=== PATIENT | female | born 1990 | race Caucasian/White ===

== ENCOUNTER 2021-07-31 17:49 | Emergency (ER) | payer OTHER, SELFPAY ==
[2021-07-31 18:00] VITALS: BP 119/76; PULSE 95; RESP 14; TEMP 37.2; O2SAT 99; BMI 17.3
[2021-07-31 18:25] LABS: Add Manual Diff / Slide Review NO; Basophils Absolute Auto 100 /uL (0-100); Basophils Percent Auto 0.8 % (0-2); Eosinophils Absolute Auto 100 /uL (0-450); Hematocrit 37.2 % (36-46); Hemoglobin 12.6 g/dL (12.0-16.0); Lymphocytes Absolute Auto 2300 /uL (1100-4500); Lymphocytes Percent Auto 35.4 % (25-40); Mean Corpuscular HGB Conc 33.9 % (30-36); Mean Corpuscular Hemoglobin 31.3 PG (26-34); Mean Corpuscular Volume 92.5 fL (80-100); Monocytes Absolute Auto 500 /uL (0-900); Monocytes Percent Auto 6.8 % (3-14); Neutrophils Absolute Auto 3600 /uL (1500-7000); Platelet Count 359 X10^3/uL (150-400); Red Blood Cell Count 4.03 X10^6/uL (4.0-5.2); Red Cell Distribution Width 13.5 % (11.6-14.8); White Blood Cell Count 6.6 X10^3/uL (4.5-11.0)
[2021-07-31 18:45] LABS: Alanine Aminotransferase 38 IU/L (<35); Albumin 4.6 g/dL (3.5-5.0); Albumin Globulin Ratio 1.4 (1.0-2.8); Alkaline Phosphatase 50 U/L (38-126); Aspartate Aminotransferase 40 IU/L (14-36); BUN Creatinine Ratio 13.6 (6-22); Bilirubin Total 0.3 mg/dL (0.2-1.3); Blood Urea Nitrogen 9 mg/dL (7-17); Calcium 9.1 mg/dL (8.4-10.2); Carbon Dioxide 27 mmol/L (22-32); Chloride 102 mmol/L (98-107); Estimated Glomerular Filt Rate > 60.0 mL/min (>60); Globulin 3.2 g/dL (1.7-4.1); Glucose 115 mg/dL (70-100); HEMOLYSIS < 15 (0-50); Potassium 3.3 mmol/L (3.4-5.1); Sodium 138 mmol/L (137-145); Total Protein 7.8 g/dL (6.3-8.2)
== END 2021-07-31 19:15 | disposition left against medical advice (07) ==
PROVIDERS: Emergency Provider Emergency Medicine; PCP Family Medicine; Referring Provider Obstetrics & Gynecology
DX: K92.1 Melena (principal); R10.2 Pelvic and perineal pain; K62.89 Other specified diseases of anus and rectum
CPT/HCPCS: 36415; 80053; 85025; 86850; 86900; 86901; 99283

== ENCOUNTER 2021-08-01 13:48 | Observation (INO) | payer OTHER, SELFPAY ==
[2021-08-01] VITALS (11 sets, daily range): BP systolic 116–170; BP diastolic 58–95; PULSE 45–120; RESP 16–20; TEMP 36.4–36.5; O2SAT 96–100; BMI 17.9
[2021-08-01 16:07] LABS: Bacteria Urine None Seen
[2021-08-01 16:10] LABS: Add Manual Diff / Slide Review NO; Basophils Absolute Auto 100 /uL (0-100); Eosinophils Absolute Auto 100 /uL (0-450); Eosinophils Percent Auto 1.7 % (2-4); Hematocrit 38.3 % (36-46); Hemoglobin 13.1 g/dL (12.0-16.0); Lymphocytes Absolute Auto 1900 /uL (1100-4500); Lymphocytes Percent Auto 31.3 % (25-40); Mean Corpuscular HGB Conc 34.1 % (30-36); Mean Corpuscular Hemoglobin 31.4 PG (26-34); Mean Corpuscular Volume 91.9 fL (80-100); Monocytes Absolute Auto 500 /uL (0-900); Monocytes Percent Auto 8.6 % (3-14); Neutrophils Absolute Auto 3600 /uL (1500-7000); Neutrophils Percent Auto 57.4 % (50-75); Platelet Count 356 X10^3/uL (150-400); Red Blood Cell Count 4.17 X10^6/uL (4.0-5.2); Red Cell Distribution Width 13.5 % (11.6-14.8); White Blood Cell Count 6.2 X10^3/uL (4.5-11.0)
[2021-08-01 16:22] LABS: Amorphous Sediment Urine 1+; Culture Indicated Urine Cult Not Indicated; Mucus Urine 1+ (Negative); RBC Urine 1-5/HPF (0-5/HPF); Squamous Epithelial Cell Urine 1-5 /HPF (0-5/HPF); WBC Urine 0-1/HPF (0-5/HPF)
[2021-08-01 16:23] LABS: Alanine Aminotransferase 33 IU/L (<35); Albumin 4.9 g/dL (3.5-5.0); Albumin Globulin Ratio 1.6 (1.0-2.8); Alkaline Phosphatase 48 U/L (38-126); Aspartate Aminotransferase 33 IU/L (14-36); BUN Creatinine Ratio 14.8 (6-22); Bilirubin Total 0.5 mg/dL (0.2-1.3); Blood Urea Nitrogen 9 mg/dL (7-17); Calcium 9.4 mg/dL (8.4-10.2); Carbon Dioxide 26 mmol/L (22-32); Chloride 106 mmol/L (98-107); Estimated Glomerular Filt Rate > 60.0 mL/min (>60); Glucose 96 mg/dL (70-100); HEMOLYSIS < 15 (0-50); Potassium 3.4 mmol/L (3.4-5.1); Sodium 139 mmol/L (137-145); Total Protein 7.9 g/dL (6.3-8.2)
--- NOTE | 2021-08-01 16:51 | ED_ITS ---
HPI - GI Bleed General Chief complaint: GI Bleed Stated complaint: Gastro issues Time Seen by Provider: 08/01/21 16:51 Source: patient and family Mode of arrival: Ambulatory Limitations: no limitations History of Present Illness HPI Narrative: Patient is a 31-year-old female who presents with worsening pain. She has had pelvic pain ongoing for the last 2 years. She she has started having rectal bleeding this week and started her menstrual cycle as well. She gets severe intense stabbing pains in her pelvic region. It is only controlled with multiple pillows and heating pad. She has previously taken opiates but she says it typically does not help except make her extremely nauseous. She has used marijuana in the past was also sometimes helps. She feels unknown in the medical community has taken her seriously in the past. She is terribly afraid of cancer multiple family members have had cancer. She is extremely worried about a hysterectomy as well. She previously was on years of fertility treatme nts unable to get . She has been off of fertility treatments for a long time now. Overall she is extremely upset and frustrated medical system. Related Data Home Medications Medication Instructions Recorded Confirmed oxybutynin chloride 5 mg 5 mg PO DAILY 07/22/21 08/01/21 tablet,extended release 24 hr Allergies Allergy/AdvReac Type Severity Reaction Status Date / Time No Known Drug Allergies Allergy Verified 08/01/21 14:00 Review of Systems Review of Systems Narrative: GENERAL: Denies chills, fatigue, malaise, fever, sweats, travel HEENT: Denies sinus pain, ear pain, sore throat, difficulty swallowing, neck pain RESPIRATORY: Denies dyspnea, cough, wheezing, hemoptysis, sputum. CARDIOVASCULAR: Denies chest pain, palpitations, orthopnea, edema GASTROINTESTINAL: See HPI : See HPI MUSCULOSKELETAL: Denies weakness, joint pain, or bony pain SKIN: No rash, no erythema, no pruritus NEUROLOGIC: Denies weakness, dizziness, headache, numbness, change in speech, confusion PSYCHIATRIC: No concerning psychosocial issues. 12 point review of systems is negative except for those stated above and HPI Patient History Medical History (Updated 08/01/21 @ 19:38 by Angelique Loaiza DO) Pelvic fluid collection Pelvic pain Rectal bleeding Social History household members: spouse Smoking Status: Never smoker alcohol intake: current Smoking Status: Never smoker alcohol intake frequency: holidays/special occasions only Substance Use Type: marijuana Exam Initial Vital Signs Initial Vital Signs: Vital Signs Pulse Rate 120 H 08/01/21 13:52 Respiratory Rate 16 08/01/21 13:52 Blood Pressure 170/90 H 08/01/21 13:52 Pulse Oximetry 100 08/01/21 13:52 GENERAL: Thin anxious 31-year-old female in obvious pain HEENT: Head atraumatic,EOMI, pupils reactive, face symmetric, moist mucous membranes CARDIOVASCULAR: Regular rate and rhythm without murmurs, rubs or gallops. RESPIRATORY: Breath sounds equal bilaterally, no wheezes rales or rhonchi. ABDOMEN: Soft, mild lower abdominal tenderness after dilaudid and heating pad has complained EXTREMITIES: Normal range of motion, no clubbing or edema. Neurovascularly intact NEUROLOGICAL: Alert and oriented x4.Normal gait and speech. SKIN: Warm, dry, no laceration, no petechiae, no rashes or lesions. Course Orders Ordered: ED Orders 08/01/21 14:01 EKG-12 Lead Stat 08/01/21 15:50 Complete Blood Count AUTO DIFF Stat Comprehensive Metabolic Panel Stat 08/01/21 15:55 Urine Microscopic Stat 08/01/21 16:00 COVID19 - ADMIT (H[employer] swab/PCR) Stat 08/01/21 17:31 CT abdomen pelvis w con Stat Discontinued Medications Hydromorphone HCl (Hydromorphone 1 Mg Inj) 1 mg IV NOW ONE Stop: 08/01/21 16:53 Last Admin: 08/01/21 17:06 Dose: 1 mg Documented by: CORTNEY Ondansetron HCl (Ondansetron 4 Mg/2 Ml Inj) 4 mg IV NOW ONE Stop: 08/01/21 16:53 Last Admin: 08/01/21 17:05 Dose: 4 mg Documented by: CORTNEY Vital Signs Vital signs: Vital Signs - 8 hr 08/01/21 13:52 08/01/21 15:47 08/01/21 16:00 Pulse Rate 120 H 65 68 Respiratory Rate 16 Blood Pressure 170/90 H 124/66 Pulse Oximetry 100 100 99 08/01/21 16:30 08/01/21 17:00 08/01/21 17:30 Pulse Rate 103 H 72 59 L Respiratory Rate Blood Pressure 141/95 H 116/58 L 125/82 Pulse Oximetry 98 98 98 08/01/21 18:00 08/01/21 18:30 08/01/21 18:38 Pulse Rate 61 54 L Respiratory Rate Blood Pressure 125/68 Pulse Oximetry 96 98 MDM - GI Bleed Lab Data Result diagrams: 08/01/21 15:50 08/01/21 15:50 Labs: Lab Results 08/01/21 08/01/21 08/01/21 Range/Units 15:50 15:50 15:55 WBC 6.2 (4.5-11.0) X10^3/uL RBC 4.17 (4.0-5.2) X10^6/uL Hgb 13.1 (12.0-16.0) g/dL Hct 38.3 (36-46) % MCV 91.9 (80-100) fL MCH 31.4 (26-34) PG MCHC 34.1 (30-36) % RDW 13.5 (11.6-14.8) % Plt Count 356 (150-400) X10^3/uL Neut % (Auto) 57.4 (50-75) % Lymph % (Auto) 31.3 (25-40) % [place] % (Auto) 8.6 (3-14) % Eos % (Auto) 1.7 L (2-4) % Baso % (Auto) 1.0 (0-2) % Neut # (Auto) 3600 (6236-4353) /uL Lymph # (Auto) 1900 (3631-7939) /uL [place] # (Auto) 500 (0-900) /uL Eos # (Auto) 100 (0-450) /uL Baso # (Auto) 100 (0-100) /uL Sodium 139 (137-145) mmol/L Potassium 3.4 (3.4-5.1) mmol/L Chloride 106 (98-107) mmol/L Carbon Dioxide 26 (22-32) mmol/L BUN 9 (7-17) mg/dL Creatinine 0.61 (0.52-1.04) mg/dL Estimated GFR > 60.0 (>60) mL/min BUN/Creatinine Ratio 14.8 (6-22) Glucose 96 (70-100) mg/dL Calcium 9.4 (8.4-10.2) mg/dL Total Bilirubin 0.5 (0.2-1.3) mg/dL AST 33 (14-36) IU/L ALT 33 (<35) IU/L Alkaline Phosphatase 48 (38-126) U/L Total Protein 7.9 (6.3-8.2) g/dL Albumin 4.9 (3.5-5.0) g/dL Globulin 3.0 (1.7-4.1) g/dL Albumin/Globulin Ratio 1.6 (1.0-2.8) Urine RBC 1-5/hpf (0-5/HPF) Urine WBC 0-1/hpf (0-5/HPF) Ur Squamous Epith Cells 1-5 /hpf (0-5/HPF) Amorphous Sediment 1+ Urine Bacteria None seen (None) Urine Mucus 1+ H (Negative) Ur Culture Indicated? Cult not indicated SARS-CoV-2 (PCR) (Negative) 08/01/21 Range/Units 16:00 WBC (4.5-11.0) X10^3/uL RBC (4.0-5.2) X10^6/uL Hgb (12.0-16.0) g/dL Hct (36-46) % MCV (80-100) fL MCH (26-34) PG MCHC (30-36) % RDW (11.6-14.8) % Plt Count (150-400) X10^3/uL Neut % (Auto) (50-75) % Lymph % (Auto) (25-40) % [place] % (Auto) (3-14) % Eos % (Auto) (2-4) % Baso % (Auto) (0-2) % Neut # (Auto) (2506-9831) /uL Lymph # (Auto) (1195-0015) /uL [place] # (Auto) (0-900) /uL Eos # (Auto) (0-450) /uL Baso # (Auto) (0-100) /uL Sodium (137-145) mmol/L Potassium (3.4-5.1) mmol/L Chloride (98-107) mmol/L Carbon Dioxide (22-32) mmol/L BUN (7-17) mg/dL Creatinine (0.52-1.04) mg/dL Estimated GFR (>60) mL/min BUN/Creatinine Ratio (6-22) Glucose (70-100) mg/dL Calcium (8.4-10.2) mg/dL Total Bilirubin (0.2-1.3) mg/dL AST (14-36) IU/L ALT (<35) IU/L Alkaline Phosphatase (38-126) U/L Total Protein (6.3-8.2) g/dL Albumin (3.5-5.0) g/dL Globulin (1.7-4.1) g/dL Albumin/Globulin Ratio (1.0-2.8) Urine RBC (0-5/HPF) Urine WBC (0-5/HPF) Ur Squamous Epith Cells (0-5/HPF) Amorphous Sediment Urine Bacteria (None) Urine Mucus (Negative) Ur Culture Indicated? SARS-CoV-2 (PCR) Negative (Negative) Point of Care Testing Test Results Negative Urine Dip Bedside Urine Glucose Negative Bedside Urine Bilirubin - Negative Bedside Urine Ketone - Negative Urine Specific [place] 1.010 Bedside Urine Occult Blood - Negative Bedside Urine pH 8 Bedside Urine Protein - Negative Bedside Urine Urobilinogen - Negative Bedside Urine Nitrite - Negative Bedside Urine Leukocytes - Negative Esterase Imaging Data CT scan - abdomen/pelvis: Radiologist's Impression: PROCEDURE:? CT ABDOMEN PELVIS W CON ? INDICATIONS:? severe pain ? TECHNIQUE:? After the administration of oral and IV contrast, axial sections were acquired from the lung bases to the pubic symphysis.? Coronal and sagittal reformats were performed.? For radiation dose reduction, the following was used:? automated exposure control, adjustment of mA and/or kV according to patient size. ? COMPARISON:? None. ? FINDINGS:? Image quality:? Excellent.? ? Lung bases:? Unremarkable.? ? Heart:? No significant findings. ? ? ABDOMEN: Liver:? Unremarkable.? ? Gallbladder:? Unremarkable.? ? Biliary ducts:? Unremarkable.? ? Pancreas:? Unremarkable.? ? Spleen:? Unremarkable.? ? Adrenal Glands:? Unremarkable.? ? Kidneys and Ureters:? Unremarkable.? ? ? Stomach and Bowel:? Stomach, small bowel loops, and colon are unremarkable.? Peritoneum:? No abnormal intraperitoneal fluid.? No free air.? ? Ventral Wall: ? No hernia.? Abdominal Nodes:? No retroperitoneal or mesenteric adenopathy by size criteria.? Vessels:? Aorta and inferior vena cava are normal in size.? ? PELVIS: Pelvic Organs:? Unremarkable.? ? Bladder:? Unremarkable.? ? Pelvic Nodes: No enlarged lymph nodes.? 8 mm coarse calcification in the right lower quadrant may reflect prior granulomatous disease. Miscellaneous: No inguinal hernias are seen.? ? Small amount of free fluid in the pelvis. ? ? Bones:? Incidental pars defects are noted in the L5 vertebral body without spondylolisthesis.? Remainder of the osseous structures are unremarkable. ? ? IMPRESSION:? ? Small amount of free fluid in the pelvis.? Consider ultrasound correlation. ? Incidental L5 spondylolysis without evidence of spondylolisthesis ? ? Approved by: Puneet Robertson M.D. on 08/01/2021 at 17:25? ECG Data Interpretation: Normal sinus rhythm rate 51 [place] interval 116 QRS [address] changes or T-wave inversions MDM Narrative Medical decision making narrative: Patient is calmed and is agreeable to dilaudid and Zofran which seems to help her tremendously. Blood work is overall stable and reassuring. Although patient is having obvious spasms that appear quite painful. CT does show trace amount of fluid and possible granulomatous disease in her right lower quadrant. The concern with new episodic rectal bleeding ulcerative colitis versus an endometriosis. I have spoken personally to Dr. Aranda who is in the emergency department to see and evaluate patient and self he saw her earlier today Dr. Anderson has surgery updated patient's symptoms test results he has been made aware of patient via Dr. Aranda and recommends admission to hospitalist Dr. Conrad updated on everyone's recommendations patient's symptoms and agrees to observation Discharge Plan Departure Patient Disposition: Admitted as Observation Clinical Impression: Pelvic pain, Rectal bleeding Admit Date/Time: 08/01/21 18:42 Admit Provider: Royce Conrad
[2021-08-01] MEDS: ONDANSETRON 4 MG/2 ML INJ IV (17:05)
[2021-08-01] MEDS: HYDROMORPHONE 1 MG INJ IV (17:06)
[2021-08-01 17:15] LABS: COVID19 - ADMIT (NP swab/PCR) Negative (Negative)
--- NOTE | 2021-08-01 17:31 | DI.CT.S_ITS ---
PROCEDURE: CT ABDOMEN PELVIS W CON INDICATIONS: severe pain TECHNIQUE: After the administration of oral and IV contrast, axial sections were acquired from the lung bases to the pubic symphysis. Coronal and sagittal reformats were performed. For radiation dose reduction, the following was used: automated exposure control, adjustment of mA and/or kV according to patient size. COMPARISON: None. FINDINGS: Image quality: Excellent. Lung bases: Unremarkable. Heart: No significant findings. ABDOMEN: Liver: Unremarkable. Gallbladder: Unremarkable. Biliary ducts: Unremarkable. Pancreas: Unremarkable. Spleen: Unremarkable. Adrenal Glands: Unremarkable. Kidneys and Ureters: Unremarkable. Stomach and Bowel: Stomach, small bowel loops, and colon are unremarkable. Peritoneum: No abnormal intraperitoneal fluid. No free air. Ventral Wall: No hernia. Abdominal Nodes: No retroperitoneal or mesenteric adenopathy by size criteria. Vessels: Aorta and inferior vena cava are normal in size. PELVIS: Pelvic Organs: Unremarkable. Bladder: Unremarkable. Pelvic Nodes: No enlarged lymph nodes. 8 mm coarse calcification in the right lower quadrant may reflect prior granulomatous disease. Miscellaneous: No inguinal hernias are seen. Small amount of free fluid in the pelvis. Bones: Incidental pars defects are noted in the L5 vertebral body without spondylolisthesis. Remainder of the osseous structures are unremarkable. IMPRESSION: Small amount of free fluid in the pelvis. Consider ultrasound correlation. Incidental L5 spondylolysis without evidence of spondylolisthesis Approved by: Puneet Robertson M.D. on 08/01/2021 at 17:25
--- NOTE | 2021-08-01 18:55 | PC.NURSE ---
Jai Lucas: [phone]
--- NOTE | 2021-08-01 21:25 | P.HP_ITS ---
History of Present Illness History of Present Illness Chief complaint: Gastro issues Narrative: The patient is a woman who has been having pain in her pelvis. She is to undergo a laparoscopy be on Wednesday of this week however she developed diarrhea with blood mixed in with it. She is uncertain how much bleeding she has done and it sounds like from the description is mostly stool with some blood mixed. It is not black. She has not had this before. She has had diarrhea alternating with constipation for some time. The family drinks city water. No one else has the symptoms. She comes from a large family and does not have any recollection of anyone having Crohn's disease or ulcerative colitis. There are people with intestinal issues however. She says she usually tends toward constipation rather than diarrhea. No in in the family has had cancer of the colon. She had a grandfather of pancreatic cancer and 1 of lung cancer. She had an aunt who had breast cancer. She has 1 sibling was otherwise healthy. Patient History Medical History Pelvic fluid collection Pelvic pain Rectal bleeding Family & Social History Family History (Updated 08/01/21 @ 21:29 by Adal Anderson MD) Other Cancer Social History: household members spouse Prior Living Arrangements House Safety & Behavioral: Feels Safe in Current Yes Environment Suicidal Ideation Description None Suicide Plan Description No Plan Tobacco & Substance use: Smoking Status Never smoker alcohol intake current alcohol intake frequency holiday/special occasion Substance Use Type marijuana Meds Home Medications and Allergies Home Medications Medication Instructions Recorded Confirmed Type oxybutynin chloride 5 mg 5 mg PO DAILY 07/22/21 08/01/21 History tablet,extended release 24 hr Allergies Allergy/AdvReac Type Severity Reaction Status Date / Time No Known Drug Allergies Allergy Verified 08/01/21 14:00 Review of Systems Review of Systems Narrative: No heart or breathing problems. No murmurs. No hematemesis. No seizures or blackouts. Exam Vital Signs (past 8 hours): - 08/01/21 13:52 08/01/21 15:47 08/01/21 16:00 Temperature Pulse Rate 120 H 65 68 Respiratory Rate 16 Blood Pressure 170/90 H 124/66 Pulse Oximetry 100 100 99 08/01/21 16:30 08/01/21 17:00 08/01/21 17:30 Temperature Pulse Rate 103 H 72 59 L Respiratory Rate Blood Pressure 141/95 H 116/58 L 125/82 Pulse Oximetry 98 98 98 08/01/21 18:00 08/01/21 18:30 08/01/21 18:38 Temperature Pulse Rate 61 54 L Respiratory Rate Blood Pressure 125/68 Pulse Oximetry 96 98 08/01/21 19:00 Temperature 97.7 F Pulse Rate 45 L Respiratory Rate 20 Blood Pressure 124/77 Pulse Oximetry 98 Oxygen Delivery Method Room Air Oxygen Flow Rate 0 Narrative Exam Narrative: Very thin andCooperative in no Apparent distress at this time. eyes are nonicteric. Lungs are clear to auscultation. No rales or rhonchi. Heart regular rate and rhythm no murmur gallop. Abdomen is scaphoid s oft nontender without mass. alert and oriented. Seems very anxious. Objective Labs Result Diagrams: 08/01/21 15:50 08/01/21 15:50 Labs: Laboratory Results - last 24 hr 08/01/21 08/01/21 08/01/21 15:50 15:50 15:55 WBC 6.2 RBC 4.17 Hgb 13.1 Hct 38.3 MCV 91.9 MCH 31.4 MCHC 34.1 RDW 13.5 Plt Count 356 Neut % (Auto) 57.4 Lymph % (Auto) 31.3 [place] % (Auto) 8.6 Eos % (Auto) 1.7 L Baso % (Auto) 1.0 Neut # (Auto) 3600 Lymph # (Auto) 1900 [place] # (Auto) 500 Eos # (Auto) 100 Baso # (Auto) 100 Sodium 139 Potassium 3.4 Chloride 106 Carbon Dioxide 26 BUN 9 Creatinine 0.61 Estimated GFR > 60.0 BUN/Creatinine Ratio 14.8 Glucose 96 Calcium 9.4 Total Bilirubin 0.5 AST 33 ALT 33 Alkaline Phosphatase 48 Total Protein 7.9 Albumin 4.9 Globulin 3.0 Albumin/Globulin Ratio 1.6 Urine RBC 1-5/hpf Urine WBC 0-1/hpf Ur Squamous Epith Cells 1-5 /hpf Amorphous Sediment 1+ Urine Bacteria None seen Urine Mucus 1+ H Ur Culture Indicated? Cult not indicated SARS-CoV-2 (PCR) 08/01/21 16:00 WBC RBC Hgb Hct MCV MCH MCHC RDW Plt Count Neut % (Auto) Lymph % (Auto) [place] % (Auto) Eos % (Auto) Baso % (Auto) Neut # (Auto) Lymph # (Auto) [place] # (Auto) Eos # (Auto) Baso # (Auto) Sodium Potassium Chloride Carbon Dioxide BUN Creatinine Estimated GFR BUN/Creatinine Ratio Glucose Calcium Total Bilirubin AST ALT Alkaline Phosphatase Total Protein Albumin Globulin Albumin/Globulin Ratio Urine RBC Urine WBC Ur Squamous Epith Cells Amorphous Sediment Urine Bacteria Urine Mucus Ur Culture Indicated? SARS-CoV-2 (PCR) Negative Assessment & Plan Assessment and plan (1) Rectal bleeding: Status: Acute (2) Pelvic pain: Status: Acute Assessment & Plan narrative: Difficult to tell with the bleeding is from. Given all of her pelvic history an upcoming surgery and felt it important to proceed with an evaluation of her colon promptly. She would like to begin prep tonight and do it tomorrow morning and have a colonoscopy tomorrow mid day. I think there is some likelihood that she has some form of inflammatory bowel disease. This could be however something that simpler or more complex her pelvic pain may be related to endometriosis and this could be from an endom etrial implant. Her CT scan shows fluid within her endometrium. The intestines read as normal but I think the most recent scan may show some thickening of the sigmoid colon. I have discussed the procedure and the rationale with the patient including risks of bleeding, perforation which would necessitate a major operation, failure to find remove all lesions and the potential to tattoo. They appeared to understand and wished to proceed. Because of her history of being on a prescription monitoring program I will ask the anesthesiologist to be with us so we can avoid the use of narcotics. Time Spent With Patient Critical Care time: I spent a total of [] minutes of critical care time on this patient's care today; this time is exclusive of procedural time.
[2021-08-01] MEDS: PEG3350/SOD SULF,BICARB,CL/KCL 4,000 ML SOLUTION 2000 ML PO (21:51)
[2021-08-01] MEDS: DEXTROSE 5%-LACTATED RINGERS 1,000 ML 84 ML IV (21:52)
[2021-08-01] MEDS: PROCHLORPERAZINE 10 MG/2 ML VIAL IV (22:29)
--- NOTE | 2021-08-01 23:03 | P.HP_ITS ---
History of Present Illness History of Present Illness Date Patient Seen: 08/01/21 Time Patient Seen: 22:00 Chief complaint: Gastro issues Narrative: Nicolle Mesa is 31-year-old patient of Dr. Aranda feed grinder who was in her usual state of health and scheduled to have laparoscopic surgery for pelvic pain on August 07 presented to the emergency department with rectal bleeding. She states she has been nauseous with cramping. She has a history of interstitial cystitis and has had bladder expansion done at [facility]. She does deny vomiting, she has had poor p.o. intake due to feeling nauseous all the time for a number of weeks, denies fevers sweats or chills, denies UTIs, she has alternating bouts of constipation and diarrhea currently is having diarrhea with blood. Ultrasound ordered in the ED indicated small amount of free fluid in the pelvis. Patient is afebrile, blood pressure 124/77 heart rate 45, respiratory rate 20, oxygen saturation 90% on room air she weighs 45.2 kg with a BMI of 17.9. CBC is unremarkable, BMP and liver enzymes are also unremarkable, UA is negative for UTI, COVID-19 PCR is negative, stool O and P and Clostridium difficile are pending. Patient History Medical History (Updated 08/01/21 @ 23:27 by RUPINDER Williamson) Interstitial cystitis Pelvic fluid collection Pelvic pain Family & Social History Family History (Updated 08/01/21 @ 23:28 by RUPINDER Williamson) Mother Alive and well Father Cancer of oral cavity Tobacco user Other Cancer Social History: household members spouse Prior Living Arrangements House Safety & Behavioral: Feels Safe in Current Yes Environment Suicidal Ideation Description None Suicide Plan Description No Plan Tobacco & Substance use: Smoking Status Never smoker alcohol intake current alcohol intake frequency holiday/special occasion Substance Use Type marijuana Comment: Takes oral THC for relief of interstitial cystitis Meds Home Medications and Allergies Home Medications Medication Instructions Recorded Confirmed Type oxybutynin chloride 5 mg 5 mg PO DAILY 07/22/21 08/01/21 History tablet,extended release 24 hr Allergies Allergy/AdvReac Type Severity Reaction Status Date / Time No Known Drug Allergies Allergy Verified 08/01/21 14:00 Review of Systems Review of Systems ROS: Yes All systems reviewed with the patient and are negative except as otherwise documented Exam Vital Signs (past 8 hours): - 08/01/21 15:47 08/01/21 16:00 08/01/21 16:30 Temperature Pulse Rate 65 68 103 H Respiratory Rate Blood Pressure 124/66 141/95 H Pulse Oximetry 100 99 98 08/01/21 17:00 08/01/21 17:30 08/01/21 18:00 Temperature Pulse Rate 72 59 L 61 Respiratory Rate Blood Pressure 116/58 L 125/82 Pulse Oximetry 98 98 96 08/01/21 18:30 08/01/21 18:38 08/01/21 19:00 Temperature 97.7 F Pulse Rate 54 L 45 L Respiratory Rate 20 Blood Pressure 125/68 124/77 Pulse Oximetry 98 98 Oxygen Delivery Method Room Air Oxygen Flow Rate 0 Narrative Exam Narrative: Gen: Alert, oriented, thin 31 y.o. female, NAD HEENT: normocephalic, atraumatic, conjunctiva clear, sclera non-icteric, oral m ucosa pink and moist Neck: supple, full ROM, no JVD, trachea is midline Resp: Lungs CTA, non-labored breathing CV: RRR, no murmur or rubs Abd: soft, non-tender, normoactive BTs Skin: no lesions or rashes, dry and intact Neuro: Alert and oriented X 4 w/no focal deficits. Speech clear and coherent. Extremities: moves all 4 extremities, is ambulatory, negative Bisi?s sign Psyche: anxious but cooperative Objective Labs Result Diagrams: 08/01/21 15:50 08/01/21 15:50 Labs: Laboratory Results - last 24 hr 08/01/21 08/01/21 08/01/21 15:50 15:50 15:55 WBC 6.2 RBC 4.17 Hgb 13.1 Hct 38.3 MCV 91.9 MCH 31.4 MCHC 34.1 RDW 13.5 Plt Count 356 Neut % (Auto) 57.4 Lymph % (Auto) 31.3 [place] % (Auto) 8.6 Eos % (Auto) 1.7 L Baso % (Auto) 1.0 Neut # (Auto) 3600 Lymph # (Auto) 1900 [place] # (Auto) 500 Eos # (Auto) 100 Baso # (Auto) 100 Sodium 139 Potassium 3.4 Chloride 106 Carbon Dioxide 26 BUN 9 Creatinine 0.61 Estimated GFR > 60.0 BUN/Creatinine Ratio 14.8 Glucose 96 Calcium 9.4 Total Bilirubin 0.5 AST 33 ALT 33 Alkaline Phosphatase 48 Total Protein 7.9 Albumin 4.9 Globulin 3.0 Albumin/Globulin Ratio 1.6 Urine RBC 1-5/hpf Urine WBC 0-1/hpf Ur Squamous Epith Cells 1-5 /hpf Amorphous Sediment 1+ Urine Bacteria None seen Urine Mucus 1+ H Ur Culture Indicated? Cult not indicated SARS-CoV-2 (PCR) 08/01/21 16:00 WBC RBC Hgb Hct MCV MCH MCHC RDW Plt Count Neut % (Auto) Lymph % (Auto) [place] % (Auto) Eos % (Auto) Baso % (Auto) Neut # (Auto) Lymph # (Auto) [place] # (Auto) Eos # (Auto) Baso # (Auto) Sodium Potassium Chloride Carbon Dioxide BUN Creatinine Estimated GFR BUN/Creatinine Ratio Glucose Calcium Total Bilirubin AST ALT Alkaline Phosphatase Total Protein Albumin Globulin Albumin/Globulin Ratio Urine RBC Urine WBC Ur Squamous Epith Cells Amorphous Sediment Urine Bacteria Urine Mucus Ur Culture Indicated? SARS-CoV-2 (PCR) Negative Assessment & Plan Assessment & Plan narrative: Nicolle Mesa is observed overnight to do a bowel prep and will undergo colonoscopy in an attempt to identify a source of rectal bleeding. 1. Suspected lower GI bleed, acute, present on admission * Dr. Anderson to scope her in the morning and will do a bowel prep tonight * NPO except meds * CBC in the morning to monitor for blood loss * C. Difficile and stool O and P pending 2. Chronic and ongoing pelvic pain, present on admission * Pain control with IV Dilaudid 0.5 mg q 3 hours prn pain 3. Interstitial cystitis, chronic * Continue home dose of oxybutynin 5 mg p.o. as needed VTE Prophylaxis: Wells risk score 0 bilateral AMANDO hose, patient is ad adán in the room Patient is placed into observation as her stay is not expected to exceed 2 midnights. FEN: IV fluids: NS at 100 ml/hour, diet: NPO except meds, labs: CBC, C/BMP, liver enzymes, Mag, Consultants Dr. Anderson, General Surgery, care and involvement in the patient?s care is appreciated. Dispo: probable discharge to home Code status: Full Code as discussed with the patient who identifies , Jai Mesa as her surrogate and POA. I confirmed that the patient's advanced care plan is present, code status is determined, or surrogate decision maker is listed on the patient's medical recor d. [X] I have utilized all available immediate resources to obtain, update, or review of the patient's current medications [X] The patient has current or prior documentation of the left ventricular ejection fraction (LEVF) less than 40% or moderate or severely depressed left ventricular systolic function. [] Yes [X] No COVID-19 COVID-19 status: Negative Result date/Date tested (Pos, Neg/Pending): 08/01/21 Quality VTE Deep Vein Thrombosis/Pulmonary Embolism Present on Admission: No MIPS - DC The patient has current or prior documentation of left ventricular ejection fraction (LVEF) less than 40%, or moderate or severely depressed left ventricular systolic function.: No
[2021-08-01] MEDS: HYDROMORPHONE 0.5 MG INJ IV (23:55)
[2021-08-02] VITALS (10 sets, daily range): BP systolic 113–139; BP diastolic 60–83; PULSE 46–68; RESP 12–21; TEMP 35.5–36.4; O2SAT 95–100; BMI 17.6
--- NOTE | 2021-08-02 | PATH_ITS ---
[facility] Accession Number: [id number] . 01 Material submitted: . rectum - RANDOM RECTAL BIOPSIES . 01 Clinical history: . RANDOM BIOPSIES ON NORMAL LOOKING MUCOSA GASTRO ISSUES . 02 Diagnosis: Rectum, Biopsies: Colonic mucosa with no diagnostic abnormality. Negative for active, chronic, and microscopic colitis. Negative for dysplasia and malignancy. . V 08/06/2021 1042 Local . 02 Electronically signed: . Tom Gomez MD, PhD, Pathologist NPI- [id number] . 01 Gross description: . RANDOM RECTAL BIOPSIES: Received in formalin are 4 fragment(s) of armas, soft tissue measuring 0.4 x 0.3 x 0.2 cm to 0.3 x 0.3 x 0.2 cm submitted entirely in 1 cassette(s) /VANDANA 08/05/2021 0211 Local . 02 Pathologist provided ICD-10: R19.4, R10.9 . 02 CPT . 590121 Specimen Comment: A duplicate report has been generated due to demographic updates. Performed at: [facility] [address], [place], [place] [id number] MD Harrison Kimball MD Phone: [phone] Performed at: [facility] [address] [place], [place] [id number] MD Nuria Vasquez MD Phone: [phone]
[2021-08-02 00:18] LABS: Campylobacter Not Detected (Not Detect); Clostridium difficile toxin AB Not Detected (Not Detect); Enteroaggregative E.coli Not Detected (Not Detect); Enteropathogenic E.coli Not Detected (Not Detect); Enterotoxigenic E.coli It/st Not Detected (Not Detect); Plesiomonsa shigelloides Not Detected (Not Detect); Salmonella Not Detected (Not Detect); Shiga-like toxin-prod E.coli Not Detected (Not Detect); Vibrio Not Detected (Not Detect); Vibrio cholerae Not Detected (Not Detect); Yersinia enterocolitica Not Detected (Not Detect)
[2021-08-02 00:19] LABS: Adenovirus F 40/41 Not Detected (Not Detect); Astrovirus Not Detected (Not Detect); Cryptosporidium Not Detected (Not Detect); Cyclospora cayetanensis Not Detected (Not Detect); Entamoeba histolytica Not Detected (Not Detect); Giardia lamblia Not Detected (Not Detect); Norovirus GI/GII Not Detected (Not Detect); Rotavirus A Not Detected (Not Detect); Sapovirus Not Detected (Not Detect); Shigella/Enteroinvasive E.coli Not Detected (Not Detect)
--- NOTE | 2021-08-02 02:08 | PC.NURSE ---
Pt is A and O x4, VSS. Spouse Jos in room. Pt stool has been clear since 0000. PIV migrating and redressing and enforcement cause anxiety and tears. Pt rated px 7/10, given 0.5 mg dilaudid IVP and able to sleep. Independent in room.
[2021-08-02] MEDS: PEG3350/SOD SULF,BICARB,CL/KCL 4,000 ML SOLUTION 2000 ML PO (05:44)
[2021-08-02 06:39] LABS: Add Manual Diff / Slide Review NO; Basophils Absolute Auto 0 /uL (0-100); Basophils Percent Auto 0.5 % (0-2); Eosinophils Absolute Auto 0 /uL (0-450); Eosinophils Percent Auto 0.2 % (2-4); Hematocrit 37.5 % (36-46); Hemoglobin 12.8 g/dL (12.0-16.0); Lymphocytes Absolute Auto 1300 /uL (1100-4500); Lymphocytes Percent Auto 16.3 % (25-40); Mean Corpuscular Hemoglobin 31.6 PG (26-34); Mean Corpuscular Volume 92.8 fL (80-100); Monocytes Absolute Auto 500 /uL (0-900); Monocytes Percent Auto 5.9 % (3-14); Neutrophils Absolute Auto 6100 /uL (1500-7000); Neutrophils Percent Auto 77.1 % (50-75); Platelet Count 329 X10^3/uL (150-400); Red Blood Cell Count 4.04 X10^6/uL (4.0-5.2); Red Cell Distribution Width 13.6 % (11.6-14.8)
[2021-08-02 06:56] LABS: BUN Creatinine Ratio 5.6 (6-22); Blood Urea Nitrogen 3 mg/dL (7-17); Calcium 9.3 mg/dL (8.4-10.2); Carbon Dioxide 23 mmol/L (22-32); Chloride 105 mmol/L (98-107); Estimated Glomerular Filt Rate > 60.0 mL/min (>60); Glucose 135 mg/dL (70-100); HEMOLYSIS < 15 (0-50); Potassium 4.2 mmol/L (3.4-5.1); Sodium 139 mmol/L (137-145)
[2021-08-02] MEDS: DEXTROSE 5%-LACTATED RINGERS 1,000 ML 84 ML IV (07:47)
--- NOTE | 2021-08-02 09:15 | CM.DANOTE ---
DCP: Case received, EMR reviewed and met with patient. , Jai, was also at bedside. Introduced self and role. Was able to obtain information from patient regarding her baseline activity status prior to hospitalization. DCP assessment completed with information currently available. Patient is a 31 year old female who admitted yesterday morning to the care of the hospitalist team. PCP: Dr. Johnson. Payer: confirmed: [employer]. Patient came to the hospital via private vehicle secondary to having pelvic pain/rectal bleeding. She is scheduled for a colonoscopy this morning at approximately 10:00am. Met with patient in her room. She is currently NPO, sitting up in bed, in room. Confirmed that they both reside in [facility]. She is independent at her baseline. P: DCP to continue to follow. Patient should be able to go home when medically stable, possibly today depending up her results. Jessica Waggnoer RN/Timber Inspector
--- NOTE | 2021-08-02 10:03 | PM.PREOP ---
Pre-operative Note COVID-19 COVID-19 status: Negative Result date/Date tested (Pos, Neg/Pending): 08/01/21 Interval Note History & Physical reviewed/Exam performed by Physician: Yes Changes to H&P: No
--- NOTE | 2021-08-02 10:36 | PM.OP.ENDO ---
Operative Date/Time/Diagnoses Date of procedure: 08/02/21 Time of procedure: 10:36 Pre-op diagnosis: RECTAL BLEEDING by history Post-op diagnosis: same (Normal exam including the terminal ileum) Procedure & Clinicians Study performed: Colonoscopy Same procedure as scheduled: Yes Indications: New onset rectal bleeding Surgeon: Adal Anderson Procedure Notes SCOAP/Timeout: Performed Procedure in detail: The patient is placed in left lateral decubitus position. Because of her narcotic medication at issues and her severe anxiety in anesthesiologist was available to provide IV sedation without the use of narcotics and provide adequate sedation in order to actually do the procedure. The patient was placed in the left lateral decubitus position and underwent IV sedation directed by the surgeon consisting of fentanyl and Versed. Digital exam was unremarkable. The scope was inserted and advanced through the rectum into the sigmoid, descending, transverse, and ascending colon. The patient had to be reduced position once in order to complete the exam. The cecum was reached identified by the ileocecal valve and the appendiceal opening. The ileocecal valve was successfully cannulated. The terminal ileum was normal in appearance. The scope was gradually brought out. NoPolyps were found. No areas of inflammation or abnormal appearing mucosa were identified anywhere including the rectum. I did choose to do some random biopsies in the rectum in case there is a subclinical issue here. The scope ultimately was retroflexed in the rectum. The appearance was normal. I saw no evidence of hemorrhoids and coming slowly through the anus saw no evidence of a bleeding site. The scope was removed and the patient tolerated the procedure well. Scope withdrawal time: 4 minutes Sedation minutes: 0 (Deep sedation was provided by the anesthesiologist.) Specimen(s): other (Random rectal biopsies. Normal appearing mucosa.) Complications: none Impression: No findings to suggest a significant colonic pathology. Recommend proceeding with the surgery scheduled for Wednesday. Post-procedure Recommendations: Other recommendation (Begin screening at normal age.) Plan for aftercare: Discharge and follow-up with her skiver welt end.
--- NOTE | 2021-08-02 10:58 | PM.DS.1 ---
History of Present Illness History of Present Illness Chief complaint: Gastro issues Narrative: The patient is a woman who has been having pain in her pelvis. She is to undergo a laparoscopy be on Wednesday of this week however she developed diarrhea with blood mixed in with it. She is uncertain how much bleeding she has done and it sounds like from the description is mostly stool with some blood mixed. It is not black. She has not had this before. She has had diarrhea alternating with constipation for some time. The family drinks city water. No one else has the symptoms. She comes from a large family and does not have any recollection of anyone having Crohn's disease or ulcerative colitis. There are people with intestinal issues however. She says she usually tends toward constipation rather than diarrhea. No in in the family has had cancer of the colon. She had a grandfather of pancreatic cancer and 1 of lung cancer. She had an aunt who had breast cancer. She has 1 sibling was otherwise healthy. Discharge Providers Provider Date of admission: 08/01/21 18:42 Discharge Date: 08/02/21 Primary care physician: Nuria Johnson MD Consults: 08/01/21 19:10 Consult to General Surgery Routine Comment: Consulting Provider: Adal Anderson Reason for consultation: GI bleeding Has provider been notified: Yes Discharge provider: Adal Anderson MD Summary Hospital Course Discharge Diagnosis: History of rectal bleeding. Chronic pelvic pain. Status at Discharge Cognitive/behavioral status at discharge: oriented Functional status at discharge: independent ambulation Overall status at discharge: patient is back to baseline Exam Vital Signs (past 8 hours): - 08/02/21 03:10 08/02/21 08:05 08/02/21 09:55 Temperature 97.1 F L 96 F L 97.6 F Pulse Rate 54 L 50 L 52 L Respiratory Rate 15 14 15 Blood Pressure 114/67 113/63 116/72 Pulse Oximetry 95 98 98 08/02/21 09:56 08/02/21 10:31 08/02/21 10:36 Temperature 97.2 F L Pulse Rate 52 L 46 L 68 Respiratory Rate 14 21 15 Blood Pressure 126/60 123/71 139/83 Pulse Oximetry 98 100 100 08/02/21 10:41 08/02/21 10:46 Temperature Pulse Rate 65 57 L Respiratory Rate 12 13 Blood Pressure 129/83 118/78 Pulse Oximetry 100 100 Oxygen Delivery Method Room Air Oxygen Flow Rate 0 Narrative Exam Narrative: Patient is alert and oriented. Lungs clear. Abdomen is scaphoid. Objective Labs Result Diagrams: 08/02/21 06:13 08/02/21 06:13 Labs: Laboratory Results - last 24 hr 08/01/21 08/01/21 08/01/21 15:50 15:50 15:55 WBC 6.2 RBC 4.17 Hgb 13.1 Hct 38.3 MCV 91.9 MCH 31.4 MCHC 34.1 RDW 13.5 Plt Count 356 Neut % (Auto) 57.4 Lymph % (Auto) 31.3 [place] % (Auto) 8.6 Eos % (Auto) 1.7 L Baso % (Auto) 1.0 Neut # (Auto) 3600 Lymph # (Auto) 1900 [place] # (Auto) 500 Eos # (Auto) 100 Baso # (Auto) 100 Sodium 139 Potassium 3.4 Chloride 106 Carbon Dioxide 26 BUN 9 Creatinine 0.61 Estimated GFR > 60.0 BUN/Creatinine Ratio 14.8 Glucose 96 Calcium 9.4 Total Bilirubin 0.5 AST 33 ALT 33 Alkaline Phosphatase 48 Total Protein 7.9 Albumin 4.9 Globulin 3.0 Albumin/Globulin Ratio 1.6 Urine RBC 1-5/hpf Urine WBC 0-1/hpf Ur Squamous Epith Cells 1-5 /hpf Amorphous Sediment 1+ Urine Bacteria None seen Urine Mucus 1+ H Ur Culture Indicated? Cult not indicated Stl C. cayetanensis PCR Stool Rotavirus (PCR) Stool Adenovirus (PCR) Stool Astrovirus (PCR) Stool Cryptosporidium PCR Stl E.coli Shiga Tox PCR e clear. AbdoSt Sh/Enteroin Ecoli PCR Stoomen isl E coli O157 PCR Stl Enterotoxigenic E PCR Stool EPEC (PCR) Stl E. histolytica PCR Stool Giardia Lamblia PCR Stool Sapovirus (PCR) Stl P. shigelloides PCR St Y.enterocolitica PCR Stool Vibrio (PCR) Stl Vibrio cholerae PCR Stl Enteroaggr Ecoli PCR Stl Norovirus GI/GII PCR Campylobacter (PCR) C. difficile Tox (PCR) SARS-CoV-2 (PCR) Salmonella (PCR) 08/01/21 08/01/21 08/02/21 16:00 23:00 06:13 WBC 8.0 RBC 4.04 Hgb 12.8 Hct 37.5 MCV 92.8 MCH 31.6 MCHC 34.0 RDW 13.6 Plt Count 329 Neut % (Auto) 77.1 H Lymph % (Auto) 16.3 L [place] % (Auto) 5.9 Eos % (Auto) 0.2 L Baso % (Auto) 0.5 Neut # (Auto) 6100 Lymph # (Auto) 1300 [place] # (Auto) 500 Eos # (Auto) 0 Baso # (Auto) 0 Sodium Potassium Chloride Carbon Dioxide BUN Creatinine Estimated GFR BUN/Creatinine Ratio Glucose Calcium Total Bilirubin AST ALT Alkaline Phosphatase Total Protein Albumin Globulin Albumin/Globulin Ratio Urine RBC Urine WBC Ur Squamous Epith Cells Amorphous Sediment Urine Bacteria Urine Mucus Ur Culture Indicated? Stl C. cayetanensis PCR Not detected Stool Rotavirus (PCR) Not detected Stool Adenovirus (PCR) Not detected Stool Astrovirus (PCR) Not detected Stool Cryptosporidium PCR Not detected Stl E.coli Shiga Tox PCR Not detected St Sh/Enteroin Ecoli PCR Not detected Stool E coli O157 PCR Not Reportable Stl Enterotoxigenic E PCR Not detected Stool EPEC (PCR) Not detected Stl E. histolytica PCR Not detected Stool Giardia Lamblia PCR Not detected Stool Sapovirus (PCR) Not detected Stl P. shigelloides PCR Not detected St Y.enterocolitica PCR Not detected Stool Vibrio (PCR) Not detected Stl Vibrio cholerae PCR Not detected Stl Enteroaggr Ecoli PCR Not detected Stl Norovirus GI/GII PCR Not detected Campylobacter (PCR) Not detected C. difficile Tox (PCR) Not detected SARS-CoV-2 (PCR) Negative Salmonella (PCR) Not detected 08/02/21 06:13 WBC RBC Hgb Hct MCV MCH MCHC RDW Plt Count Neut % (Auto) Lymph % (Auto) [place] % (Auto) Eos % (Auto) Baso % (Auto) Neut # (Auto) Lymph # (Auto) [place] # (Auto) Eos # (Auto) Baso # (Auto) Sodium 139 Potassium 4.2 Chloride 105 Carbon Dioxide 23 BUN 3 L Creatinine 0.54 Estimated GFR > 60.0 BUN/Creatinine Ratio 5.6 L Glucose 135 H Calcium 9.3 Total Bilirubin AST ALT Alkaline Phosphatase Total Protein Albumin Globulin Albumin/Globulin Ratio Urine RBC Urine WBC Ur Squamous Epith Cells Amorphous Sediment Urine Bacteria Urine Mucus Ur Culture Indicated? Stl C. cayetanensis PCR Stool Rotavirus (PCR) Stool Adenovirus (PCR) Stool Astrovirus (PCR) Stool Cryptosporidium PCR Stl E.coli Shiga Tox PCR St Sh/Enteroin Ecoli PCR Stool E coli O157 PCR Stl Enterotoxigenic E PCR Stool EPEC (PCR) Stl E. histolytica PCR Stool Giardia Lamblia PCR Stool Sapovirus (PCR) Stl P. shigelloides PCR St Y.enterocolitica PCR Stool Vibrio (PCR) Stl Vibrio cholerae PCR Stl Enteroaggr Ecoli PCR Stl Norovirus GI/GII PCR Campylobacter (PCR) C. difficile Tox (PCR) SARS-CoV-2 (PCR) Salmonella (PCR) [facility] Medical History (Updated 08/01/21 @ 23:27 by RUPINDER Williamson) Interstitial cystitis Pelvic fluid collection Pelvic pain Family History (Updated 08/01/21 @ 23:28 by RUPINDER Williamson) Mother Alive and well Father Cancer of oral cavity Tobacco user Other Cancer Social History household members: spouse Smoking Status: Never smoker alcohol intake: current Discharge Assessment & Plan Assessment and Plan Assessment: Chronic pelvic pain. Evaluation on Wednesday with a laparoscopy by Dr. Aranda. This is already scheduled. No obvious source of your bleeding from colonoscopy. You may have some bleeding now from the procedure. This would not be unusual. You should go to the ER for passage of large amounts of blood per rectum. Discharge Plan Discharge Plan Patient Disposition: Home Provider Discharge Comment: Your colonoscopy was entirely normal. The studies on her stool or also normal. I did do some random biopsies in your rectum but I did not see anything there. I do not know why you had the bleeding but it seems to not be anything serious, and it seems to have resolved. Please keep your appointments for your operation on Wednesday. I have made Dr. Aranda aware of the results. Discharge orders & Medications Prescriptions: Continued oxybutynin chloride 5 mg tablet extended release 24hr 5 mg PO DAILY RF: 0 Follow up/Referrals: Nuria Johnson MD [Primary Care Provider] - Adal Aranda MD [Physician] - (Keep your appointment for your Wednesday operation and follow the instructions you already have.) Diet/Activity/Treatments Diet: Diet as Tolerated Activity: Do not operate machinery or drive today. Do not sign important documents today. You may resume normal activity tomorrow. Discharge Data Primary Care Provider: Nuria Johnson Attending Provider: Royce Conrad VTE Deep Vein Thrombosis/Pulmonary Embolism Present on Admission: No
[2021-08-02] MEDS: LACTATED RINGERS 1,000 ML 42 ML IV (11:04)
--- NOTE | 2021-08-02 11:06 | SUR.PHASEI ---
Patient came from Acute Care unit for a colonoscopy on the weekend. When procedure done, and patient woke up, sent back to acute care to most likely be sent home. No discharge instructions given due to going back to the floor
--- NOTE | 2021-08-02 11:35 | PC.NURSE ---
Patient back from PACU and ready for d/c to home. VSS, tolerating clears, no n/v, no pain, and ambulating in room. Dr. Barrios at bedside. IV removed. Went over d/c instructions with patient and spouse. Instructed not to drive today, continue home meds, when to return to the ER, follow up appts, and s/s of stroke. Patient with no question. Taken down to private vehicle with RN and spouse.
== END 2021-08-02 11:39 | disposition home or self-care (01) ==
LOC: ED 16:51 → AC 18:43
PROVIDERS: Nurse Practitioner Family; Specialist; Admitting Provider Internal Medicine; Emergency Provider Emergency Medicine; PCP Family Medicine; Referring Provider Emergency Medicine; Visit Provider Internal Medicine
PROC: 0DJD8ZZ Inspection of Lower Intestinal Tract, Via Natural or Artificial Opening Endoscopic (ICD-10-PCS; CPT 45378; principal; 2021-08-02 10:00)
DX: K62.5 Hemorrhage of anus and rectum (principal); R10.2 Pelvic and perineal pain; Z20.822 Contact with and (suspected) exposure to COVID-19
CPT/HCPCS: 45380; 36415; 36592; 74177; 80048; 80053; 81003; 81015; 81025; 85025; 87507; 87635; 93005; 96361; 96374; 96375; 96376; 99284; 99285; C9803; G0378; J0780; J1170; J2405; J7121

== ENCOUNTER → 2021-08-05 11:09 | Outpatient (CLI) | payer OTHER, SELFPAY ==
[2021-08-02 01:11] VITALS: BMI 17.6
[2021-08-05 12:03] LABS: COVID19 -Nasal RAPID Negative (Negative)
== END ==
PROVIDERS: PCP Family Medicine; Visit Provider Obstetrics & Gynecology
DX: Z01.812 Encounter for preprocedural laboratory examination (principal); Z20.822 Contact with and (suspected) exposure to COVID-19
CPT/HCPCS: 87635

== ENCOUNTER 2021-08-05 11:32 | Day surgery (SDC) | payer OTHER, SELFPAY ==
[2021-08-01 08:16] VITALS: BMI 17.9
[2021-08-02 01:11] VITALS: BMI 17.6
[2021-08-05] VITALS (7 sets, daily range): BP systolic 125–143; BP diastolic 70–91; PULSE 50–91; RESP 10–20; TEMP 36.9–37.7; O2SAT 99–100; BMI 17.9
--- NOTE | 2021-08-05 | PATH_ITS ---
[facility] Accession Number: [id number] . 01 Material submitted: . PART A: peritoneum - RIGHT PERITONEAL BIOPSY CUL DE SAC PART B: peritoneum - LEFT PERITONEAL BIOPSY CUL DE SAC . 01 Clinical history: . SDC . 01 Diagnosis: A. Right Peritoneal Cul-De-Sac, Biopsy: Endometriosis. . B. Left Peritoneal [place]-De-Sac, Biopsy: Mild chronic inflammation with hemosiderin deposition and focal possible endometrial stromal cells, consistent with endometriosis. [facility] 08/07/2021 1732 Local . 01 Comment: This case has been reviewed by Dr. Allison Flores. . 01 Electronically signed: . Dante Maria MD, Dermatopathologist NPI- [id number] . 01 Gross description: . A. Received in formalin, labeled right peritoneal biopsy consists of a 1.5 x 1.0 x 0.4 cm armas-pink fragment of soft tissue, which is inked blue, bisected, and entirely submitted in cassette A1. B. Received in formalin, labeled left peritoneal biopsy consists of a 0.6 x 0.5 x 0.3 cm armas fragment of soft tissue, which is inked blue, bisected and entirely submitted in cassette B1. ([id number]) /MRV 08/06/2021 1022 Local . 01 Pathologist provided ICD-10: R10.2 . 01 CPT . 150107, 430857 [facility]formed at: 01 [facility] [address] [place] [id number] MD Harrison Kimball MD Phone: [phone]
[2021-08-05] MEDS: LACTATED RINGERS 1,000 ML 100 ML IV ×2 (12:27→15:14)
--- NOTE | 2021-08-05 12:56 | P.HPOB_ITS ---
History of Present Illness History of Present Illness Reason for admission: pelvic pain Narrative: Nicolle is a 31 yo G0 LMP 07/15/2021 who was referred for evaluation of longstanding pelvic pain by her primary care provider, Dr. Nuria Johnson.? The patient's pain began over 2 years ago and originally was considered bladder in origin.? She has been seen, evaluated, and treated extensively by the urology group in [place] with hydrodistention and 6 instillations of DMSO.? Relief from any of those procedures has been transient and the pain has not only returned but over the last 2 years has gradually worsened to the point where it is now.? She still? takes THC by mouth daily prabha use without it she finds it difficult if not impossible to empty her bladder. The pain is difficult for her just to describe but is constant and involves the entire pelvis.? It is markedly worsened by defecation which has become very difficult and does radiate down her right leg into the right calf.? She has no motor or sensory deficit however in either lower extremity.? 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 Extensive evaluation by Dr. Johnson has been negative for any laboratory abnormalities but a CT on 07/01/2021 shows significant amount of fluid in the pelvis and it's described as intermediate density. In addition, there is significant amount of fluid in the endometrial cavity which was thought to be associated with menses but she was actually not on her menses of the time. Subsequent abdominal/pelvic CT 08/01/2021 showed only a small amount of fluid in the pevis and no adnexal abnormalities. Of note is that the patient states her pain originally started as left sided pain and she has repeatedly been told that she has a small cyst in the left ovary when ultrasounds are performed. Patient has been offered narcotics for pain relief in the past but they do little and make her constipated which simply makes her pain worse.? Aside from pain with defecation, she has not had any consistent GI s ymptomatology.? She states however that starting last week, she started having episodic diarrhea after eating food and the diarrhea was notable for bright red blood each time she had a bowel movement.? She was referred to the emergency department at [facility] and underwent colonoscopy on 08/02/2021 which was negative for any abnormality whatever. Rectal biopsies are pending but are not expected to be revealing. After extensive discussions regarding options for further evaluation, the patient is scheduled to undergo diagnostic laparoscopy at [facility] on 07/05/2021.? She presents today for her scheduled surgery. [facility] Medical History Interstitial cystitis Pelvic fluid collection Pelvic pain Family History Mother Alive and well Father Cancer of oral cavity Tobacco user Other Cancer Social History household members: spouse Smoking Status: Never smoker alcohol intake: current Meds Home Medications and Allergies Home Medications Medication Instructions Recorded Confirmed Type oxybutynin chloride 5 mg 5 mg PO DAILY 07/22/21 08/05/21 History tablet,extended release 24 hr Allergies Allergy/AdvReac Type Severity Reaction Status Date / Time No Known Drug Allergies Allergy Verified 08/02/21 09:54 Review of Systems Review of Systems Narrative: Problem-specific ROS positives are included in HPI. Exam Vital Signs (past 8 hours): - 08/05/21 12:28 Temperature 99.9 F H Pulse Rate 91 H Respiratory Rate 20 Blood Pressure 143/91 H Pulse Oximetry 100 Oxygen Delivery Method Room Air Const General: cooperative, in distress (due to pain) and anxious Nutritional Appearance: thin Orientation: alert and oriented x3 HENMT Head: normocephalic and atraumatic Eyes General: appearance normal, both eyes and all related structures Neck Neck: normal visual inspection Resp Effort & Inspection: normal respiratory effort and able to speak in complete sentences Auscultation: clear to auscultation bilaterally Cardio Rate: regular rate Rhythm: regular rhythm Heart Sounds: S1 normal, S2 normal and no murmurs GI Palpation: guarding and tender (Exquisite tenderness diffusely but greatest in both LQ's) General: other (Deferred for EUA due to pain and patient apprehension) Neuro General: other (antalgic, shuffling gait) Psych Appearance: other (Fragile, unwell, in pain) Mental Status: mental status grossly normal Speech and Movement: speech and movement normal Mood: congruent mood Affect: normal affect Attitude: cooperative Thought Process: normal Thought Content: normal Judgment: judgment good Assessment & Plan Assessment and plan (1) Pelvic pain: Status: Acute (2) Pelvic fluid collection: Status: Acute Plan: Patient and her were counseled regarding alternatives, options for further evaluation, risks, benefits, and potential complications associated with diagnostic laparoscopy.? Due to the uncertain nature of the cause of her pelvic pain, we discussed the possibility of possibly removing the left tube and ovary which seems to have been the initial location of her pain as well as the possibility of hysterectomy with or without BSO.? Although such extensive surgery is unlikely, their position is that they would like to move forward with whatever surgery is necessary to mitigate the patient's pain symptoms.? With full understanding of the above, her written consent was presviously executed, signed, and witnessed. Time Spent With Patient Critical Care time: I spent a total of [] minutes of critical care time on this patient's care today; this time is exclusive of procedural time.
--- NOTE | 2021-08-05 14:05 | SUR.OPER ---
Supine on padded OR bed, head on pillow, arms padded and tucked at sides, legs uncrossed, safety belt at thigh, tape over blanket over lower legs .
[2021-08-05] MEDS: BUPIVACAINE 0.5% (PF) VIAL 30 ML INJ (14:13)
[2021-08-05] MEDS: ROPIVACAINE 0.2% PF 2 MG/ML 10ML AMP 10 ML INJ (14:42)
[2021-08-05] MEDS: HYDROCODONE/ACET 5/325 TABLET 1 TAB PO (15:35)
--- NOTE | 2021-08-05 15:37 | PM.GYNOP.1 ---
Operative Date/Time/Diagnoses Date of procedure: 08/05/21 Time of procedure: 13:45 Pre-op diagnosis: Pelvic pain Post-op diagnosis: other (Pelvic pain, pelvic endometriosis) Procedure & Clinicians Procedure: Procedures Operation Date: 08/05/21 13:30 Actual Procedure Side Surgeon p Laparoscopy, Diagnostic, HEALTH SPECIALIST PERITONEAL BIOPSY,FULGERATION ENDOMETRIAL IMPLANTS Adal Aranda MD Indications: Nicolle is a 31 yo G0 LMP 07/15/2021 who was referred for evaluation of longstanding pelvic pain by her primary care provider, Dr. Nuria Johnson.? The patient's pain began over 2 years ago and originally was considered bladder in origin.? She has been seen, evaluated, and treated extensively by the urology group in [place] with hydrodistention and 6 instillations of DMSO.? Relief from any of those procedures has been transient and the pain has not only returned but over the last 2 years has gradually worsened to the point where it is now.? She still? takes THC by mouth daily because without it she finds it difficult if not impossible to empty her bladder. The pain is difficult for her just to describe but is constant and involves the entire pelvis.? It is markedly worsened by defecation which has become very difficult and does radiate down her right leg into the right calf.? She has no motor or sensory deficit however in either lower extremity.? 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 Extensive evaluation by Dr. Johnson has been negative for any laboratory abnormalities but a CT on 07/01/2021 shows significant amount of fluid in the pelvis and it's described as intermediate density. In addition, there is significant amount of fluid in the endometrial cavity which was thought to be associated with menses but she was actually not on her menses of the time. Subsequent abdominal/pelvic CT 08/01/2021 showed only a small amount of fluid in the pevis and no adnexal abnormalities. Of note is that the patient states her pain originally started as left sided pain and she has repeatedly been told that she has a small cyst in the left ovary when ultrasounds are performed. Patient has been offered narcotics for pain relief in the past but they do little and make her constipated which simply makes her pain worse.? Aside from pain with defecation, she has not had any consistent GI symptomatology.? She states however that starting last week, she started having episodic diarrhea after eating food and the diarrhea was notable for bright red blood each time she had a bowel movement.? She was referred to the emergency department at [facility] and underwent colonoscopy on 08/02/2021 which was negative for any abnormality whatever. Rectal biopsies are pending but are not expected to be revealing. After extensive discussions regarding options for further evaluation, the patient is scheduled to undergo diagnostic laparoscopy at [facility] on 07/05/2021.? She presents today for her scheduled surgery. Surgeon: Adal Aranda Derrick Engineer: Pau Salmon Anesthesia Type: General Operative Notes Findings: Upon entry into the abdominal cavity, the pelvis and upper abdomen were visualized laparoscopically. The anterior cul-de-sac is free of adhesions or endometrial implants but there is a small amount of bloody fluid therein. Similarly, the posterior cul-de-sac contains a moderate amount of blood-tinged fluid. 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 The uterus is normal size and both fallopian tubes appear normal in their entirety. In the posterior cul-de-sac however there are Masters windows containing endometriosis medial to the uterosacral ligaments on both left and the right side. These were excised in their entirety during the course of the procedure. There was also a superficial Masters window with endometriotic implants lateral to the uterus sacral ligaments insertion into the cervix on the left side. Monopolar current was used to destroy the superficial implants. Inspection of the sigmoid colon demonstrated an area which appeared ulcer-like but which probably represents a serosal rent from colonoscopy performed 3 days ago. Intraoperative consult with general surgery confirmed that impression. The appendix was normal in all respects. The liver edge of both the left and right lobe were unremarkable and the gallbladder could not be visualized. No other abnormalities were noted. Closure Type: primary Specimen(s): other ( Peritoneal biopsies (excision, endometriosis)) Estimated blood loss (mL): 5 Blood products transfused: none Procedure in detail: With the patient under satisfactory general endotracheal anesthesia in the dorsal lithotomy position, the vagina, perineum, and abdomen were prepped and draped in the usual fashion for laparoscopy. A pre-surgical safety time-out was then taken per [facility] Main OR protocol. No uterine manipulator was placed. The umbilicus was then infiltrated with 0.5% Marcaine and a 1 cm vertical umbilical incision was made. A Veress needle was then used to insufflate the abdominal cavity with carbon dioxide and after sufficient insufflation, a 5 mm trocar and sleeve were then placed. The 5 mm scope was placed through the port and the abdomen visualized briefly. A 2nd and 3rd 5 mm port were then placed on the right and left mid quadrants after infiltration with 0.5% Marcaine. Using a 3 puncture technique the pelvis and abdomen were thoroughly inspected and photographic documentation obtained. The Masters window on the left was then grasped at its base with a Nanda grasper and elevated so as to be able to excise the base of the Masters window with Endo Rich. This was accomplished easily and the specimen obtained for pathologic evaluation. There was minimal bleeding and what spotting there was coming from the excision site was controlled easily with monopolar cautery. The superficial Masters window lateral to the uterosacral on the left was then coagulated in its entirety again with careful avoidance of all significant underlying structures. Inspection of the right side of the cul-de-sac revealed another Masters window on the right and it too was grasped at the base with Nanda forceps and the Masters window an endometrial implant excised, and submitted for pathologic evaluation. Hemostasis was excellent at both excision sites. superficial areas of endometriosis in the left posterior cul-de-sac were then coagulated judiciously with monopolar current. At the end of the case, there was no bleeding evident and there were no remaining endometriotic implants visible. 20 cc of ropivacaine were then placed into the posterior cul-de-sac for additional postop pain relief and after assuring that there were no other abnormalities, the pneumoperitoneum was vented and the ports removed. 4-0 Monocryl suture was used to close the incisions and appropriate dressings were then applied. The patient was awakened and transferred to the PACU in stable condition for period of recovery with the patient having tolerated the procedure well. Complications experience: None. Complications: none Post-operative Condition: stable Disposition: PACU Plan for aftercare: Routine postop care.
== END 2021-08-05 16:00 | disposition home or self-care (01) ==
PROVIDERS: PCP Family Medicine; Referring Provider Obstetrics & Gynecology; Visit Provider Obstetrics & Gynecology
PROC: (CPT 49320; principal; 2021-08-05 13:30)
DX: N80.3 Endometriosis of pelvic peritoneum (principal); Z01.812 Encounter for preprocedural laboratory examination; Z20.822 Contact with and (suspected) exposure to COVID-19
CPT/HCPCS: 58662; 87635; J1100; J1885; J2250; J2405; J2704; J2795; J3010